=== PATIENT | male | born 1990 | race African-American/Black ===

== ENCOUNTER 2020-08-13 09:06 | Emergency (ER) | payer OTHER ==
[~2020-08-13] VITALS: Ht 188 cm; Wt 81.7 kg
[2020-08-13 11:36] VITALS: BP 131/69
== END 2020-08-13 11:36 | disposition home or self-care (01) ==
LOC: ER 09:06
DX: S49.81XA Other specified injuries of right shoulder and upper arm, initial encounter (principal); X50.1XXA Overexertion from prolonged static or awkward postures, initial encounter; Y93.89 Activity, other specified; Y92.89 Other specified places as the place of occurrence of the external cause; Y99.9 Unspecified external cause status